=== PATIENT | male | born 2000 | race Caucasian/White ===

== ENCOUNTER 2024-08-07 17:13 | Emergency (ER) | payer SELFPAY ==
[~2024-08-07] VITALS: Ht 193 cm; Wt 71.1 kg
[2024-08-07 17:46] VITALS: O2SAT 100
[2024-08-07 20:07] VITALS: BP 118/82; PULSE 65; RESP 20; TEMP 36.8; O2SAT 100
[2024-08-07] MEDS ORDERED: SULF1TAB48 MT (20:21)
== END 2024-08-07 20:39 | disposition home or self-care (01) ==
LOC: ER 17:13
DX: L03.031 Cellulitis of right toe (principal); Z79.899 Other long term (current) drug therapy
CPT/HCPCS: 73630; 99283; Z7610